=== PATIENT | male | born 1990 | race Caucasian/White ===

== ENCOUNTER 2017-10-25 15:36 | Emergency (ER) | payer OTHER ==
[~2017-10-25] VITALS: Ht 177.8 cm; Wt 108.9 kg
--- NOTE | 2017-10-25 15:50 | NUR ---
AAOX3, BIBRA FOR HEROINE ABUSE TOOK IT 1 HR AGO. RR IS EVEN AND UNLABORED WITH NAD NOTED. SKIN IS WARM AND DRY. DR CONNELL AT BS FOR EVAL.
--- NOTE | 2017-10-25 16:30 | NUR ---
Patient is resting comfortably in bed with eyes closed. Easily aroused. VSS
--- NOTE | 2017-10-25 17:40 | NUR ---
Patient is resting comfortably in bed with eyes closed. Easily aroused. VSS
--- NOTE | 2017-10-25 18:27 | NUR ---
Patient discharged to home in stable condition. Written and verbal after care instructions given. Patient verbalizes understanding of instruction. Ambulates out of ER with stable gait. AAOx3.
[2017-10-25 18:28] VITALS: BP 139/78
== END 2017-10-25 18:29 | disposition home or self-care (01) ==
LOC: ER 15:39
DX: T40.1X1A Poisoning by heroin, accidental (unintentional), initial encounter (principal); G93.40 Encephalopathy, unspecified; Y92.89 Other specified places as the place of occurrence of the external cause
CPT/HCPCS: 99283; A4606; Z7610